=== PATIENT | male | born 1975 | race Caucasian/White ===

== ENCOUNTER 2023-12-11 10:47 | Outpatient (AMB) | payer OTHER, SELFPAY ==
[2023-12-11 10:47] VITALS: BP 104/80; PULSE 82; O2SAT 99; BMI 28.5
--- NOTE | 2023-12-11 10:47 | HO.NEPHOV_ITS ---
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 Currently on desmopressin. Overall is doing well he is tolerating medication well the urinary frequency has decreased. PFSH Family History Father Kidney disease Social History (Updated 12/11/23 @ 10:50 by Jerrica Arriola) Alcohol intake: current Comment: occ Patient Tobacco Use Status: Former Tobacco user Vital Signs 12/11/23 10:47 Height 5 ft 5 in Weight 171 lb BMI 28.5 BP 104/80 Blood Pressure Location Lt brachial Position Sitting Pulse 82 Pulse Source Pulse Oximeter Pulse Oximetry (%) 99 Oxygen Delivery Method Room Air Physical Exam Vital Signs: Last Vital Signs Pulse 82 12/11/23 10:47 BP 104/80 12/11/23 10:47 Pulse Ox 99 12/11/23 10:47 Oxygen Delivery Method Room Air 12/11/23 10:47 BMI result Body Mass Index 28.5 Const General: comfortable Nutritional Appearance: well nourished Orientation/consciousness: patient oriented x3 HEENT Head: No normal to inspection Mouth: moist mucous membranes Neck Neck: Yes supple and Yes no JVD Resp Auscultation: clear to auscultation bilaterally, no rales and rub present Cardio Jugular venous distension: no JVD Palpation: no palpable S3 and no palpable S4 Heart sounds: no rubs GI Palpation (GI): Soft to palpation and nontender Percussion: No Fluid wave present General: Yes no CVA tenderness Back/Spine/Pelvis Back: no CVA tenderness Skin General skin exam: no rashes or lesions noted Neuro General: patient oriented x3 Extrem General: Yes no pedal edema and No clubbing Assessment & Plan Assessment & Plan (1) Diabetes insipidus: Code(s): E23.2 - Diabetes insipidus Plan: Renal function stable Continue DDAVP at the prescribed dose. Encouraged him to her blood work done at least once a month to monitor serum sodium. As per the histiocytosis he follows with Dr. Godinez in [facility]. Currently blood pressure acceptable. All his questions were answered no changes were made. Orders: Orders Comprehensive Met. Panel 12/11/23 E23.2 - Diabetes insipidus Coding Level of Care Code Est Pt Level 4 (73695) Diagnoses Diabetes insipidus E23.2 Results Reviewed Nephrology Results: No Data to Display
== END 2023-12-11 11:09 | disposition home or self-care (01) ==
PROVIDERS: PCP Student in an Organized Health Care Education/Training Program; Visit Provider Internal Medicine Hypertension Specialist
DX: E23.2 Diabetes insipidus (principal)
CPT/HCPCS: 99214

== ENCOUNTER → 2023-12-11 10:47 | Outpatient (BNVA) | payer OTHER, SELFPAY | PROVIDERS: PCP Student in an Organized Health Care Education/Training Program; Visit Provider Internal Medicine Hypertension Specialist | DX: E23.2 Diabetes insipidus (principal) | CPT/HCPCS: 99212 ==

== ENCOUNTER 2024-07-01 08:47 | Outpatient (AMB) | payer OTHER, SELFPAY ==
[2024-07-01 08:51] VITALS: BP 100/64; PULSE 73; O2SAT 97; BMI 28.1
--- NOTE | 2024-07-01 08:51 | HO.NEPHOV ---
Vital Signs 07/01/24 08:51 Height 5 ft 5 in Weight 169 lb BMI 28.1 BP 100/64 Blood Pressure Location Lt brachial Position Sitting Pulse 73 Pulse Source Pulse Oximeter Pulse Oximetry (%) 97 Oxygen Delivery Method Room Air Intake Visit Reasons: 6 Month F/U/ Conf Retort Loader Required: No Accompanied by: Self / Same As Patient Allergies No Known Allergies Allergy (Verified 07/01/24 08:54) Medication List - Last Reconciled 07/01/24 by Caridad Spears, CONRADO, [employer] cholecalciferol (vitamin D3) 50 mcg PO DAILY cyanocobalamin (vitamin B-12) 1,000 mcg PO DAILY desmopressin 0.1 mg PO TID hydroxyurea 500 mg PO DAILY rosuvastatin 20 mg PO BEDTIME sertraline 50 mg PO DAILY testosterone transdermal HPI Comments Details: 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 Currently on desmopressin. Overall is doing well he is tolerating medication well. Denies urinary frequency. Denies excessive thirst reports new onset of extreme fatigue around 2pm every day reports tired to the point where he needs to sleep for 1-2 hours this has been ongoing for a few weeks now does not note any recent changes to explain this- no changes in medications, diet, lifestyle, work, etc. no shortness of breath or chest pain no swelling in his legs no headaches no dizziness, denies dizziness upon standing no swelling in his legs no changes with bowels/bladder, no new abdominal pain reports other than this he is feeling well continues to see Dr Jimenez at [facility], scans every three months for histiocytosis. [facility] Family History Father Kidney disease Social History Alcohol intake: current Comment: occ Patient Tobacco Use Status: Former Tobacco user Review of Systems Const Details: Denies anorexia, Reports fatigue (at 2pm each day for last few weeks), Denies fever(s) and Denies weakness Eyes Denies blurry vision ENT Denies Normal hearing present and Denies dizziness Card Denies no additional complaints, Denies chest pain, Denies leg edema, Denies lightheadedness and Denies dyspnea Resp Reports no additional complaints, Denies cough and Denies dyspnea GI Reports abdominal pain and Denies diarrhea Denies hematuria, Denies oliguria, Denies difficulty urinating, Denies dysuria, Denies flank pain, Denies nocturia, Denies urinary frequency and Denies urinary urgency Musc Denies myalgias, Denies arthralgias and Denies tingling Skin/Breast Denies rash Neuro Denies Normal hearing present, Denies dizziness, Denies focal weakness, Denies tingling, Denies tremor(s) and Denies weakness Endo Reports fatigue (at 2pm each day for last few weeks) Cresencio/Lymph Reports lymphadenopathy Physical Exam Vital Signs: Last Vital Signs Pulse 73 07/01/24 08:51 BP 100/64 07/01/24 08:51 Pulse Ox 97 07/01/24 08:51 Oxygen Delivery Method Room Air 07/01/24 08:51 BMI result Body Mass Index 28.1 Const Other: General: No acute distress, well-appearing. Neck: No lymphadenopathy, no thyromegaly. No JVD. Resp: Clear to auscultation bilaterally. Cardio: Regular rate, regular rhythm; Heart sounds: S1 normal heart sound present and S2 normal heart sound present. No JVD. No peripheral edema. GI: soft, nontender, no guarding. : No CVA tenderness. Skin: no rashes or lesions noted Neuro: Alert, oriented to person, place, time. Moves all extremities spontaneously. No tremor. No asterixis. Neuro Cranial nerves: No Normal hearing present Results Reviewed Nephrology Results: No Data to Display Assessment & Plan Assessment & Plan (1) Diabetes insipidus: Code(s): E23.2 - Diabetes insipidus Category: Medical Plan: New onset fatigue, will get BMP to check sodium level, urine and serum osmolality to ensure DI is controlled and not contributing to afternoon fatigue advised pt to discuss his new severe afternoon fatigue with Dr Jimenez at [facility], as this may be related to histiocytosis. Renal function stable from February labs, due for updated electrolytes and renal function check, pt to get today. Continue DDAVP at the prescribed dose. Encouraged him to get blood work done at least once a month to monitor serum sodium. Currently blood pressure acceptable, on low side but stable so do not suspect this is contributing to fatigue. All his questions were answered no changes were made. Discussed with Dr Parks. Orders: Orders Basic Metabolic Panel Today E23.2 - Diabetes insipidus, N18.30 - Chronic kidney disease, stage 3 unspecified Osmolality, Serum Today E23.2 - Diabetes insipidus Osmolality Urine Today E23.2 - Diabetes insipidus Medications: Refilled desmopressin 0.1 mg PO TID 270 tabs 2RF Coding Level of Care Code Est Pt Level 4 (05882) Diagnoses Diabetes insipidus E23.2
== END 2024-07-01 09:29 | disposition home or self-care (01) ==
PROVIDERS: PCP Student in an Organized Health Care Education/Training Program; Visit Provider Internal Medicine Hypertension Specialist
DX: E23.2 Diabetes insipidus (principal)
CPT/HCPCS: 99214

== ENCOUNTER → 2024-07-01 08:47 | Outpatient (BNVA) | payer OTHER, SELFPAY | PROVIDERS: PCP Student in an Organized Health Care Education/Training Program; Visit Provider Internal Medicine Hypertension Specialist ==

== ENCOUNTER 2024-07-01 09:16 | Outpatient (REF) | payer OTHER, SELFPAY ==
[2024-07-01 15:46] LABS: Osmolality, Serum 293 mosm/kg (281-305)
[2024-07-01 16:15] LABS: Alanine Aminotransferase 38 U/L (0-40); Albumin Level 4.4 g/dL (3.5-5.0); Alkaline Phosphatase 78 U/L (39-117); Anion Gap 12 (12-20); Aspartate Amino Transferase 21 U/L (5-37); Bilirubin Total 0.5 mg/dL (0.0-1.0); Blood Urea Nitrogen 13 mg/dL (9-16); Calcium 9.5 mg/dL (8.4-10.2); Carbon Dioxide 26 mmol/L (22-29); Chloride 107 mmol/L (96-108); Estimated Glomerular Filt Rate > 60; Glucose Random 101 mg/dL (60-115); Potassium 4.3 mmol/L (3.3-5.1); Sodium 141 mmol/L (135-145); Total Protein 7.1 g/dL (6.5-8.0)
[2024-07-01 16:38] LABS: Osmolality Urine 941 mosm/kg (373-1093)
== END 2024-07-01 09:17 | disposition home or self-care (01) ==
LOC: HO.HKASLDS 09:16
PROVIDERS: Internal Medicine Hypertension Specialist; Visit Provider Nurse Practitioner Family
DX: E23.2 Diabetes insipidus (principal)
CPT/HCPCS: 36415; 80053; 83930; 83935; 99212

== ENCOUNTER 2024-12-23 08:36 | Outpatient (REF) | payer MEDICAID, SELFPAY ==
[2024-12-23 18:44] LABS: Anion Gap 12 (12-20); Blood Urea Nitrogen 17 mg/dL (9-16); Calcium 9.1 mg/dL (8.4-10.2); Carbon Dioxide 22 mmol/L (22-29); Chloride 111 mmol/L (96-108); Estimated Glomerular Filt Rate > 60; Glucose Random 91 mg/dL (60-115); Potassium 4.1 mmol/L (3.3-5.1); Sodium 141 mmol/L (135-145)
[2024-12-23 19:02] LABS: Osmolality Urine 887 mosm/kg (373-1093)
== END 2024-12-23 08:37 | disposition home or self-care (01) ==
LOC: HO.HKASLDS 08:36
PROVIDERS: PCP Student in an Organized Health Care Education/Training Program; Visit Provider Internal Medicine Hypertension Specialist
DX: E23.2 Diabetes insipidus (principal)
CPT/HCPCS: 36415; 80048; 83935; 84300; 99212

== ENCOUNTER 2024-12-23 08:36 | Outpatient (AMB) | payer OTHER, SELFPAY ==
[2024-12-23 08:38] VITALS: BP 108/72; PULSE 76; O2SAT 99; BMI 27.6
--- NOTE | 2024-12-23 08:38 | HO.NEPHOV_ITS ---
Vital Signs 12/23/24 08:38 Height 5 ft 5 in Weight 166 lb BMI 27.6 BP 108/72 Blood Pressure Location Lt brachial Position Sitting Pulse 76 Pulse Source Pulse Oximeter Pulse Oximetry (%) 99 Oxygen Delivery Method Room Air Intake Visit Reasons: Diabetes insipidus/ Conf Television Receiver Analyzer Required: No Accompanied by: Self / Same As Patient Allergies No Known Allergies Allergy (Verified 12/23/24 08:39) Medication List - Last Reconciled 12/23/24 by Riccardo Parks MD cholecalciferol (vitamin D3) 50 mcg PO DAILY cyanocobalamin (vitamin B-12) 1,000 mcg PO DAILY desmopressin 0.1 mg PO TID hydroxyurea 500 mg PO DAILY rosuvastatin 20 mg PO BEDTIME sertraline 50 mg PO DAILY testosterone transdermal HPI Comments Details: 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 Currently on desmopressin. Overall is doing well he is tolerating medication well. Denies urinary frequency. Denies excessive thirst reports tired to the point where he needs to sleep for 1-2 hours no shortness of breath or chest pain no swelling in his legs no headaches no dizziness, denies dizziness upon standing no swelling in his legs no changes with bowels/bladder, no new abdominal pain continues to see Dr Jimenez at [facility] scans every three months for histiocytosis. Currently on Hydroxyurea PFSH Family History Father Kidney disease Social History Alcohol intake: current Comment: [facility] Patient Tobacco Use Status: Former Tobacco user Physical Exam Vital Signs: Last Vital Signs Pulse 76 12/23/24 08:38 BP 108/72 12/23/24 08:38 Pulse Ox 99 12/23/24 08:38 Oxygen Delivery Method Room Air 12/23/24 08:38 BMI result Body Mass Index 27.6 Const Other: General: No acute distress, well-appearing. Neck: No lymphadenopathy, no thyromegaly. No JVD. Resp: Clear to auscultation bilaterally. Cardio: Regular rate, regular rhythm; Heart sounds: S1 normal heart sound present and S2 normal heart sound present. No JVD. No peripheral edema. GI: soft, nontender, no guarding. : No CVA tenderness. Skin: no rashes or lesions noted Neuro: Alert, oriented to person, place, time. Moves all extremities spontaneously. No tremor. No asterixis. Results Reviewed Nephrology Results: Sodium 141 mmol/L (135-145) 07/01/24 Potassium 4.3 mmol/L (3.3-5.1) 07/01/24 Chloride 107 mmol/L (96-108) 07/01/24 Carbon Dioxide 26 mmol/L (22-29) 07/01/24 BUN 13 mg/dL (9-16) 07/01/24 Creatinine 1.10 mg/dL (0.5-1.4) 07/01/24 Calcium 9.5 mg/dL (8.4-10.2) 07/01/24 Assessment & Plan Assessment & Plan (1) Diabetes insipidus: Code(s): E23.2 - Diabetes insipidus Category: Medical Plan: Renal function stable Continue DDAVP at the prescribed dose. Encouraged him to her blood work done at least once a month to monitor serum sodium. As per the histiocytosis he follows with Dr. Godinez in [facility]. Currently blood pressure acceptable. All his questions were answered no changes were made. Orders: Orders Basic Metabolic Panel Today E23.2 - Diabetes insipidus Sodium Urine Random Today E23.2 - Diabetes insipidus Osmolality Urine Today E23.2 - Diabetes insipidus Coding Level of Care Code Est Pt Level 4 (67546) Diagnoses Diabetes insipidus E23.2
--- OUTSIDE RECORDS SUMMARY | 2024-12-23 09:25 | XMS_ITS | Clinical Summary ---
Author Organization 175 [facility] Address [address] [place] [address] Phone Care Team Providers Care Dairy And Food Laboratory Assistant Name Role Phone Elma Louise MD Primary Care Provider [phone] Allergies Active Allergy Reactions Criticality Noted Date Comments Other 02/01/2017 Medications sertraline (ZOLOFT) 50 mg tablet Take 1 tablet (50 mg total) by mouth 1 (one) time each day. 4 Active hydroxyurea (HYDREA) 500 mg capsule Take 1 capsule (500 mg total) by mouth 2 (two) times a day Active desmopressin (DDAVP) 0.1 mg tablet Take 1 tablet (0.1 mg total) by mouth 2 (two) times a day. Active testosterone 20.25 mg/1.25 gram (1.62 %) gel in metered-dose pump Place on the skin. Active phenyleph/ampoule examiner al oil/petrolat (PREPARATION H RECT) Insert 1 mg PE into the rectum 3 (three) times a day. 3 Active triamcinolone (KENALOG) 0.1 % cream Apply topically 2 (two) times a day. x2 weeks 2 Active rosuvastatin (CRESTOR) 20 mg tablet TAKE 1 TABLET BY MOUTH EVERYDAY AT BEDTIME 90 tablet 1 5 Active cholecalciferol (VITAMIN D-3) 50 mcg (2,000 unit) tablet TAKE 1 TABLET BY MOUTH EVERY DAY 90 tablet 1 5 Active Active Problems Problem Noted Date Diagnosed Date Diabetes insipidus 10/18/2023 Elevated liver enzymes 04/17/2023 Mixed hyperlipidemia 04/17/2023 Vitamin D deficiency 04/17/2023 BPH (benign prostatic hyperplasia) 04/06/2022 Overview (08/31/2024): Followed by [facility] Chronic urticaria 01/04/2021 COVID-19 12/19/2020 Compression fracture of thoracic vertebra 2017 Overview (08/31/2024): Pathologic; ortho at [facility]; f/u prn 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 Overview (08/31/2024): Multiple bony lesions of pelvis and sacrum; [facility], also Dr Herbert gAustin 11/21/2016 Dysplastic nevus 04/14/2014 Overview (08/31/2024): Dysplastic nevus 04/19 back & left flank (mild atypia) Encounters Date Type Department Care Team Description 10/23/2024 8:30 AM EST Office Visit Internal Medicine - [address] [place] [address] Elma Louise MD Encounter for annual physical exam (Primary Dx); Other fatigue; Mixed hyperlipidemia; Langerhan's cell histiocytosis (CMS/HCC); Elevated liver enzymes; Vitamin D deficiency; Diabetes insipidus (CMS/HCC); Benign prostatic hyperplasia, unspecified whether lower urinary tract symptoms present; Anxiety; Other abnormal glucose from Last 3 Months Immunizations Name Administration Dates Next Due DTP 06/07/2001 Influenza trivalent, 0.5mL, preservative free (Fluarix; FluLaval; Fluzone) ages 6mo and older (Afluria) 3 years and older 07/05/2011,06/29/2009 Pfizer SARS-CoV-2 COVID-19, mRNA, LNP-S, preservative free 09/21/2021 Tdap Tetanus diptheria acell ular pertussis (Boostrix; Adacel) 7yo and older 12/07/2021,07/05/2011 Surgical History Surgery Date Site/Laterality Comments OTHER SURGICAL HISTORY 1990 PROCEDURE: ---- OTHER ----; COMMENT: rhinoplasty Medical History Medical History Date Comments BPH (benign prostatic hyperplasia) 04/06/2022 DX:BPH (benign prostatic hyperplasia); COMMENT: Followed by [facility] Elevated liver enzymes 04/17/2023 DX:Elevat ed liver enzymes Vitamin D deficiency 04/17/2023 DX:Vitamin D deficiency Diabetes insipidus (CMS/HCC) 10/18/2023 DX: Diabetes insipidus (HCC) Langerhan's cell histiocytos is (CMS/HCC) 11/19/2017 DX:Langerhan's cell histiocy tosis (HCC); COMMENT: Multiple bony lesions of pelvis and sacrum; [facility], also Dr Godinez Family History Medical History Relation Name Comments Alzheimer's disease Father Stomach cancer Maternal Grandfather Breast cancer Mother Coronary artery disease Neg Hx Diabetes Neg Hx Hypertension Neg Hx Other cancer Neg Hx Relation Name Status Comments Brother Alive 1,healthy Father Alive both healthy Maternal Grandfather Maternal Grandmother Mother Alive Paternal Grandfather Paternal Grandmother Sister Alive 1,healthy Social History Tobacco Use Types Packs/Day Years Used Date Smoking Tobacco: Former Cigarettes Q uit: 12/29/2006 Smokeless Tobacco: Never Tobacco Cessation:Counseling Given: Not Answered Alcohol Use Standard Drinks/Week Comments Yes 0 (1 standard drink = 0.6 oz pur e alcohol) Sex and Gender Information Value Date Recorded Sex Assigned at Not on file Legal Sex Male 3:54 AM EST Gender Identity Not on file Sexual Orientation Not on file Obstetrics History Last Filed Vital Signs Vital Sign Reading Time Taken Comments Blood Pressure 110/75 10/23/2024 8:50 AM EST Pulse 80 10/23/2024 8:50 AM EST Temperature 36.1 ??C (97 ??F) 10/23/2024 8:50 AM EST Respiratory Rate - - Oxygen Saturation 100% 10/23/2024 8:50 AM EST Inhaled Oxygen Concentration - - Weight 74.8 kg (165 lb) 10/23/2024 8:50 AM EST Height 165.1 cm (5' 5 ) 10/23/2024 8:50 AM EST Body Mass Index 27.46 10/23/2024 8:50 AM EST Plan of Treatment Upcoming Encounters Date Type Department Care Team (Late st Contact Info) Description 03/05/2025 10:30 AM EDT Appointment [facility] Endoscopy [address] [place] [id number] Janina Basurto MD [address] [address] 10/29/2025 8:30 AM EST Office Visit Internal Medicine - [place] [address] [phone] Elma Louise MD [address] [address] Health Maintenance Due Date Last Done Comments Hepatitis B Vaccines (1 of 3 - 19+ 3-dose series) 1993 Pneumococcal Vaccine: 50+ Years (1 of 2 - PCV) 1993 Pneumococcal Vaccine: Pediatrics (0 to 5 Years) and At-Risk Patients (6 to 64 Years) (1 of 2 - PCV) 1993 Zoster Vaccines (1 of 2) 1993 Colorectal Cancer Screening: Colonoscopy 09/09/2022 HIV Screening 09/09/2022 COVID-19 Vaccine (4 - 2023-2 5 season) 2024 09/21/2021, 01/30/2021, 01/09/2021 Influenza Vaccine (#1) 2024 1, 06/29/2009 Depression Screening 08/06/2025 08/06/2024 Social Influencers of Health Screening 10/23/2025 10/23/2024 Cholesterol Screening (Lipid Panel) 10/23/2029 10/23/2024, 04/17/2024, 04/17/2024 DTaP,Tdap,and Td Vaccines (4 - Td or Tdap) 12/08/2031 12/07/2021, 07/05/2011, 06/07/2001 Hepatitis C Screening Completed 10/18/2023 HIB Vaccines Aged Out No longer eligi ble based on patient's age to complete this topic HPV Vaccines Aged Out No longer eligi ble based on patient's age to complete this topic Hepatitis A Vaccines Aged Out No long er eligible based on patient's age to complete this topic IPV Vaccines Aged Out No longer eligi ble based on patient's age to complete this topic MMR Vaccines Aged Out No longer eligi ble based on patient's age to complete this topic Meningococcal ACWY Vaccine Aged Out N o longer eligible based on patient's age to complete this topic Meningococcal B Vacine Aged Out No lo nger eligible based on patient's age to complete this topic RSV Immunization Patients Under 20 months Aged Out No longer eligible b ased on patient's age to complete this topic Varicella Vaccines Aged Out No longer eligible based on patient's age to complete this topic Procedures Procedure Name Priority Date/Time Associated Diagnosis Comments CBC WITH AUTO DIFFERENTIAL Routine 10/23/2024 9:28 AM EST Other fatigue MAGNESIUM Routine 10/23/2024 9:28 AM EST Encounter for annual physical exam HEMOGLOBIN A1C Routine 10/23/2024 9:28 AM EST Encounter for annual physical exam Other abnormal glucose VITAMIN D 25 HYDROXY Routine 10/23/2024 9:28 AM EST Encounter for annual physical exam Vitamin D deficiency THYROID STIMULATING HORMONE WITH REFLEX TO FREE T4 AND FREE T3 Routine 10/23/2024 9:28 AM EST Other fatigue VITAMIN B12 Routine 10/23/2024 9:28 AM EST Other fatigue COMPREHENSIVE METABOLIC PANEL Routine 10/23/2024 9:28 AM EST Encounter for annual physical exam CBC AND DIFFERENTIAL Routine 10/23/2024 9:28 AM EST Other fatigue LIPID PANEL WITH REFLEX TO DIRECT LDL Routine 10/23/2024 9:28 AM EST Mixed hyperlipidemia HM DEPRESSION SCREENING Routine 08/06/2024 HEPATITIS C SCREENING Routine 10/18/2023 from Last 3 Months or Most Recently Relevant to Health Maintenance Results * Thyroid stimulating hormone with reflex to free t4 and free t3 (10/23/2024 9:28 AM EST) TSH 1.22 0.40 - 4.00 mcIU/mL LAB CHEMISTRY METHOD 10/23/2024 5:18 PM EST [facility] Blood Venous blood specimen / Unknown Venipuncture / Unknown 10/23/2024 9:28 AM EST 10/23/2024 9:28 AM EST Elma Louise MD LAB BLOOD ORDERABLES Final Resul t [facility] [address] [place] [address], [place] [phone] * Lipid panel with reflex to direct LDL (10/23/2024 9:28 AM EST) [facility] Cholesterol 144 0 - 200 mg/dL LAB CHEMISTRY METHOD 10/23/2024 6:12 PM [facility] Triglycerides 139 0 - 150 mg/dL LAB CHEMISTRY METHOD 10/23/2024 6:12 PM [facility] HDL 40 >=40 mg/dL LAB CHEMISTRY METHOD 10/23/2024 6:12 PM EST [facility] LDL Calculated 76 0 - 100 mg/dL LAB CHEMISTRY METHOD 10/23/2024 6:12 PM [facility] VLDL Cholesterol Nakul 27.8 mg/dL LAB CHEMISTRY METHOD 10/23/2024 6:12 PM [facility] Non HDL Chol. (LDL+VLDL) 104 <145 mg/dL LAB CHEMISTRY METHOD 10/23/2024 6:12 PM [facility] Chol/HDL Ratio 3.6 0.0 - 4.4 LAB CHEMISTRY METHOD 10/23/2024 6:12 PM [facility] Blood Venous blood specimen / Unknown Venipuncture / Unknown 10/23/2024 9:28 AM EST 10/23/2024 9:28 AM EST Elma Louise MD LAB BLOOD ORDERABLES Final Resul t [facility] [address] [place] [address], * (ABNORMAL) CBC auto differential (10/23/2024 9:28 AM EST) WBC 5.0 4.8 - 10.8 K/mcL LAB HEMETOLOGY METHOD 10/23/2024 3:18 PM EST [facility] RBC 4.50 4.50 - 5.50 M/mcL LAB HEMETOLOGY METHOD 10/23/2024 3:18 PM EST [facility] Hemoglobin 14.8 13.5 - 17.5 g/dL LAB HEMETOLOGY METHOD 10/23/2024 3:18 PM [facility] Hematocrit 44.5 42.0 - 54.0 % LAB HEMETOLOGY METHOD 10/23/2024 3:18 PM EST [facility] MCV 99.1(H) 79.0 - 98.0 FL LAB HEMETOLOGY METHOD 10/23/2024 3:18 PM EST [facility] MCH 33.0(H) 27.0 - 32.0 pcg LAB HEMETOLOGY METHOD 10/23/2024 3:18 PM [facility] MCHC 33.3 32.0 - 37.0 g/dL LAB HEMETOLOGY METHOD 10/23/2024 3:18 PM EST [facility] RDW 12.8 11.0 - 15.0 % LAB HEMETOLOGY METHOD 10/23/2024 3:18 PM EST [facility] Platelets 190 130 - 400 K/mcL LAB HEMETOLOGY METHOD 10/23/2024 3:18 PM [facility] MPV 10.1 7.0 - 11.0 FL LAB HEMETOLOGY METHOD 10/23/2024 3:18 PM EST [facility] NRBC 0.0 <1.0 % LAB HEMETOLOGY METHOD 10/23/2024 3:18 PM [facility] NRBC Absolute 0.00 <0.10 K/mcL LAB HEMETOLOGY METHOD 10/23/2024 3:18 PM [facility] Neutrophils Relative 63.2 % LAB HEMETOLOGY METHOD 10/23/2024 3:18 PM [facility] Lymphocytes Relative 26.8 % LAB HEMETOLOGY METHOD 10/23/2024 3:18 PM [facility] Monocytes Relative 7.4 % LAB HEMETOLOGY METHOD 10/23/2024 3:18 PM [facility] Eosinophils Relative 1.4 % LAB HEMETOLOGY METHOD 10/23/2024 3:18 PM [facility] Basophils Relative 0.8 % LAB HEMETOLOGY METHOD 10/23/2024 3:18 PM [facility] Immature Granulocytes Relative 0.4 % LAB HEMETOLOGY METHOD 10/23/2024 3:18 PM [facility] Neutrophils Absolute 3.18 1.50 - 7.00 K/mcL LAB HEMETOLOGY METHOD 10/23/2024 3:18 PM [facility] Lymphocytes Absolute 1.35 1.00 - 5.00 K/mcL LAB HEMETOLOGY METHOD 10/23/2024 3:18 PM [facility] Monocytes Absolute 0.37 0.20 - 1.00 K/mcL LAB HEMETOLOGY METHOD 10/23/2024 3:18 PM [facility] Eosinophils Absolute 0.07 0.00 - 0.50 K/mcL LAB HEMETOLOGY METHOD 10/23/2024 3:18 PM [facility] Basophils Absolute 0.04 0.00 - 0.20 K/mcL LAB HEMETOLOGY METHOD 10/23/2024 3:18 PM [facility] Immature Granulocytes Absolute 0.02 0.00 - 0.03 K/mcL LAB HEMETOLOGY METHOD 10/23/2024 3:18 PM EST [facility] Blood Venous blood specimen / Unknown Venipuncture / Unknown 10/23/2024 9:28 AM EST 10/23/2024 9:28 AM EST Elma Louise MD LAB BLOOD ORDERABLES Final Resul t Performing Organization Address City/[facility] de Phone Number [facility] [address] [place] [address], [place] [phone] * Vitamin D 25 hydroxy (10/23/2024 9:28 AM EST) Vit D, 25-Hydroxy 62.7 30.0 - 80.0 ng/mL LAB CHEMISTRY METHOD 10/23/2024 5:18 PM EST [facility] Blood Venous blood specimen / Unknown Venipuncture / Unknown 10/23/2024 9:28 AM EST 10/23/2024 9:28 AM EST Elma Louise MD LAB BLOOD ORDERABLES Final Resul t Performing Organization Address [facility] de Phone Number [facility] [address] [place] [address], [place] [phone] * Magnesium (10/23/2024 9:28 AM EST) Magnesium 2.2 1.9 - 2.6 mg/dL LAB CHEMISTRY METHOD 10/23/2024 5:17 PM EST [facility] Blood Venous blood specimen / Unknown Venipuncture / Unknown 10/23/2024 9:28 AM EST 10/23/2024 9:28 AM EST Elma Louise MD LAB BLOOD ORDERABLES Final Resul t Performing Organization Address City/[facility] Co de Phone Number [facility] [address] [place] [address], [place] [phone] * Hemoglobin A1c (10/23/2024 9:28 AM EST) [facility] Hemoglobin A1C 5.2 <6.5 % LAB CHEMISTRY METHOD 10/23/2024 10:07 PM EST [facility] Mean Bld Glu Estim. 103 mg/dL LAB CHEMISTRY METHOD 10/23/2024 10:07 PM EST [facility] Blood Venous blood specimen / Unknown Venipuncture / Unknown 10/23/2024 9:28 AM EST 10/23/2024 9:28 AM EST Elma Louise MD LAB BLOOD ORDERABLES Final Resul t Performing Organization Address [facility]/ZIP Co de Phone Number [facility] [address] [place] [address], * (ABNORMAL) Vitamin B12 (10/23/2024 9:28 AM EST) [facility] Vitamin B-12 >2,000(H) 250 - 900 pcg/mL LAB CHEMISTRY METHOD 10/23/2024 6:12 PM EST [facility] Blood Venous blood specimen / Unknown Venipuncture / Unknown 10/23/2024 9:28 AM EST 10/23/2024 9:28 AM EST Elma Louise MD LAB BLOOD ORDERABLES Final Resul t [facility] [address] [place] [address], [place] [phone] * (ABNORMAL) Comprehensive metabolic panel (10/23/2024 9:28 AM EST) [facility] Sodium 139 133 - 145 mmol/L LAB CHEMISTRY METHOD 10/23/2024 7:46 PM EST [facility] Potassium 4.5 3.5 - 5.5 mmol/L LAB CHEMISTRY METHOD 10/23/2024 7:46 PM [facility] Chloride 108 96 - 110 mmol/L LAB CHEMISTRY METHOD 10/23/2024 7:46 PM [facility] CO2 25 21 - 32 mmol/L LAB CHEMISTRY METHOD 10/23/2024 7:46 PM [facility] Anion Gap 6 3 - 11 LAB CHEMISTRY METHOD 10/23/2024 7:46 PM [facility] Glucose 96 70 - 100 mg/dL LAB CHEMISTRY METHOD 10/23/2024 7:46 PM [facility] BUN 12 5 - 25 mg/dL LAB CHEMISTRY METHOD 10/23/2024 7:46 PM [facility] Creatinine 1.18 0.70 - 1.30 mg/dL LAB CHEMISTRY METHOD 10/23/2024 7:46 PM [facility] eGFR 75 >=60 mL/min/1. 73m2 LAB CHEMISTRY METHOD 10/23/2024 7:46 PM [facility] Comment:Calculation based on the??Chronic Kidney Disease Epidemiology Collaboration (CKD-EPI) equation refit??without adjustment for race. BUN/Creatinine Ratio 10.2 LAB CHEMISTRY METHOD 10/23/2024 7:46 PM [facility] Calcium 8.6 8.5 - 10.5 mg/dL LAB CHEMISTRY METHOD 10/23/2024 7:46 PM [facility] AST (SGOT) 34 10 - 42 unit/L LAB CHEMISTRY METHOD 10/23/2024 7:46 PM [facility] ALT (SGPT) 68(H) 10 - 60 unit/L LAB CHEMISTRY METHOD 10/23/2024 7:46 PM [facility] Alkaline Phosphatase 108 42 - 121 unit/L LAB CHEMISTRY METHOD 10/23/2024 7:46 PM [facility] Total Protein 7.0 6.0 - 8.0 g/dL LAB CHEMISTRY METHOD 10/23/2024 7:46 PM EST [facility] Albumin 3.9 3.2 - 5.0 g/dL LAB CHEMISTRY METHOD 10/23/2024 7:46 PM EST [facility] Total Bilirubin 0.4 0.0 - 1.4 mg/dL LAB CHEMISTRY METHOD 10/23/2024 7:46 PM EST [facility] Blood Venous blood specimen / Unknown Venipuncture / Unknown 10/23/2024 9:28 AM EST 10/23/2024 9:28 AM EST Elma Louise MD LAB BLOOD ORDERABLES Final Resul t [facility] [address] [place] [address], * Depression Screening (08/06/2024) Depression Screening abstracted Historical Provider HEALTH MAINTENANCE Final Result * Hepatitis C Screening (10/18/2023) Hepatitis C Screening abstracted Historical Provider HEALTH MAINTENANCE Final Result from Last 3 Months or Most Recently Relevant to Health Maintenance Insurance [facility] Care Teams Dairy And Food Laboratory Assistant Relationship Specialty Start Date End Date Elma Louise MD [address] [place] [address] PCP - General 11/05/22
--- OUTSIDE RECORDS SUMMARY | 2024-12-23 09:25 | XMS_ITS | Clinical Summary ---
Author Organization [facility] Address [address] [facility] [address] [place] [address] Phone Care Team Providers Care Senior Network Architect Name Role Phone GabrielChris kang Primary Care Provider [phone] Allergies No known active allergies Medications sertraline (ZOLOFT) 50 MG tablet Take 1 tablet by mouth 1 (one) time each day 03/29/2022 Active hydroxyurea (HYDREA) 500 MG capsule 2 (two) times a day 10/16/2022 Active desmopressin (DDAVP) 0.1 MG tablet Take 1 tablet (100 mcg total) by mouth in the morning and 1 tablet (100 mcg total) at noon and 1 tablet (100 mcg total) in the evening. 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 Overview (05/01/2022): Overview: Multiple bony lesions of pelvis and sacrum Multiple bony lesions of pelvis and sacrum; [facility], also Dr Herbert Agustin 11/21/2016 Neoplasm of soft tissue 04/14/2014 Overview (05/01/2022): Overview: Dysplastic nevus 7/14 back & left flank (mild atypia) Dysplastic nevus 7/14 back & left flank (mild atypia) Immunizations Name Administration Dates Next Due DTP 06/07/2001 Influenza, Unspecified 07/05/2011,06/29/2009 Pfizer SARS-COV-2 09/21/2021 Tdap 12/07/2021,07/05/2011 Social History Tobacco Use Types Packs/Day Years Used Date Smoking Tobacco: Former Cigarettes Smokeless Tobacco: Never Tobacco Cessation:Counseling Given: Not Answered Alcohol Use Standard Drinks/Week Comments Never 0 (1 standard drink = 0.6 oz pur e alcohol) Sex and Gender Information Value Date Recorded Sex Assigned at Not on file Legal Sex Male 8:36 AM EDT Gender Identity Not on file Sexual Orientation Not on file Last Filed Vital Signs Vital Sign Reading Time Taken Comments Blood Pressure 122/66 05/07/2023 1:04 PM EDT Pulse 77 05/07/2023 1:04 PM EDT Temperature - - Respiratory Rate - - Oxygen Saturation 99% 05/07/2023 1:04 PM EDT Inhaled Oxygen Concentration - - Weight 74.3 kg (163 lb 12.8 oz) 07/11/2022 2:08 PM EDT Height - - Body Mass Index - - Plan of Treatment Health Maintenance Due Date Last Done Comments Pneumococcal Vaccine: Pediat rics (0 to 5 Years) and At-Risk Patients (6 to 64 Years) (1 of 2 - PCV) 02/23/1980 Hepatitis B Vaccine (1 of 3 - 19+ 3-dose series) 1993 Colorectal Cancer Screening: Annual FOBT 2023 Colorectal Cancer Screening: Colonoscopy 2023 Colorectal Cancer Screening: Sigmoidoscopy 2023 Influenza Vaccine (#1) 2024 07/05/2011, 2008 Insurance [facility] Care Teams Senior Network Architect Relationship Specialty Start Date End Date Chris Shahid [address] [place] [id number] PCP - General Internal Medicine 04/17/22
== END 2024-12-23 08:49 | disposition home or self-care (01) ==
LOC: HO.HKAS 08:37
PROVIDERS: PCP Student in an Organized Health Care Education/Training Program; Visit Provider Internal Medicine Hypertension Specialist
DX: E23.2 Diabetes insipidus (principal)
CPT/HCPCS: 99214

== ENCOUNTER 2025-08-04 10:17 | Outpatient (AMB) | payer OTHER, SELFPAY ==
[2025-08-04 10:23] VITALS: BP 112/80; PULSE 69; O2SAT 99; BMI 28.8
--- NOTE | 2025-08-04 10:23 | HO.NEPHOV ---
Vital Signs 08/04/25 10:23 Height 5 ft 5 in Weight 173 lb BMI 28.8 BP 112/80 Blood Pressure Location Lt brachial Position Sitting Pulse 69 Pulse Source Pulse Oximeter Pulse Oximetry (%) 99 Oxygen Delivery Method Room Air Intake Visit Reasons: Diabetes insipidus confirmed Bus Person Dishwasher Required: No Accompanied by: Self / Same As Patient Allergies No Known Allergies Allergy (Verified 08/04/25 10:24) Medication List - Last Reconciled 08/04/25 by Riccardo Parks MD cholecalciferol (vitamin D3) 50 mcg PO DAILY cyanocobalamin (vitamin B-12) 1,000 mcg PO DAILY desmopressin 0.1 mg PO TID rosuvastatin 20 mg PO BEDTIME sertraline 50 mg PO DAILY testosterone 2 packets transdermal DAILY HPI Comments Details: 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 Currently on desmopressin. Overall is doing well he is tolerating medication well. Denies urinary frequency. Denies excessive thirst reports tired to the point where he needs to sleep for 1-2 hours no shortness of breath or chest pain no swelling in his legs no headaches no dizziness, denies dizziness upon standing no swelling in his legs no changes with bowels/bladder, no new abdominal pain continues to see Dr Jimenez at [facility], scans every three months for histiocytosis. 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 Recently seen in [place]. Underwent a PET scan which was unremarkable. He is off hydroxyurea. Recently has been noticing visual disturbances. - Reports halos around lights. - Last eye exam was five years ago. PFSH Family History Father Kidney disease Social History Alcohol intake: current Comment: [facility] Patient Tobacco Use Status: Former Tobacco user Physical Exam Vital Signs: Last Vital Signs Pulse 69 08/04/25 10:23 BP 112/80 08/04/25 10:23 Pulse Ox 99 08/04/25 10:23 Oxygen Delivery Method Room Air 08/04/25 10:23 BMI result Body Mass Index 28.8 Const Other: General: No acute distress, well-appearing. Neck: No lymphadenopathy, no thyromegaly. No JVD. Resp: Clear to auscultation bilaterally. Cardio: Regular rate, regular rhythm; Heart sounds: S1 normal heart sound present and S2 normal heart sound present. No JVD. No peripheral edema. GI: soft, nontender, no guarding. : No CVA tenderness. Skin: no rashes or lesions noted Neuro: Alert, oriented to person, place, time. Moves all extremities spontaneously. No tremor. No asterixis. 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 Currently on DDAVP. As for the histiocytosis he follows with Dr. Godinez in [facility]. Currently blood pressure acceptable. Mild bump in serum creatinine Increase him to increase p.o. fluid intake. Will recheck serum at [facility] BUN creatinine and osmolality in the next few weeks. Visual Disturbances - Eye examination recommended to assess visual disturbances. Orders: Orders UA and rflx microscopic 6 Months E23.2 - Diabetes insipidus Blood Urea Nitrogen 1 Week E23.2 - Diabetes insipidus Osmolality Urine 1 Week E23.2 - Diabetes insipidus UA and rflx microscopic 1 Week E23.2 - Diabetes insipidus Basic Metabolic Panel 3 Months E23.2 - Diabetes insipidus Osmolality Urine 6 Months E23.2 - Diabetes insipidus Creatinine 1 Week E23.2 - Diabetes insipidus Coding Level of Care Code Est Pt Level 4 (14573) Diagnoses Diabetes insipidus E23.2
--- OUTSIDE RECORDS SUMMARY | 2025-08-04 12:47 | XMS_ITS ---
Author Name [facility] Organization Unknown Care Team Organization Name Specialty Phone Email Start Date End Da te [facility] Ashli Mir Primary Care 03/15/2023 05/25/2024 [facility] Gaby Quigley Primary Care 08/14/2022
--- OUTSIDE RECORDS SUMMARY | 2025-08-04 12:47 | XMS_ITS | Clinical Summary ---
Author Organization [address] 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 Active testosterone 20.25 mg/1.25 gram (1.62 %) gel in metered-dose pump Place on the skin. Active phenyleph/minera l oil/petrolat (PREPARATION H RECT) Insert 1 mg PE into the rectum 3 (three) times a day. 04/17/20 23 Active triamcinolone (KENALOG) 0.1 % cream Apply topically 2 (two) times a day. x2 weeks 02/20/20 22 Active polyethylene glycol (Golytely) 236-22.74-6.74 -5.86 gram solution Take 4L by mouth once for one dose. May substitue any PEG. Starting at 6PM the night before your procedure drink 1 8oz glasses at your own pace until you complete half of the gallon. Finish 2nd half of the gallon 5 hours before your procedure. 4000 mL 02/20/20 25 Active tadalafiL (CIALIS) 10 mg tablet PLEASE SEE ATTACHED FOR DETAILED DIRECTIONS 04/02/20 24 Active rosuvastatin (CRESTOR) 20 mg tablet TAKE 1 TABLET BY MOUTH EVERYDAY AT BEDTIME 90 tablet 1 04/19/20 25 Active cholecalciferol (VITAMIN D-3) 50 mcg (2,000 unit) tablet TAKE 1 TABLET BY MOUTH EVERY DAY 90 tablet 1 04/26/20 25 Active testosterone 1.62 % (20.25 mg/1.25 gram) gel in packetIndication s:Low testosterone in male Apply 2 packets a day 60 packet 2 05/07/20 25 Active sertraline (ZOLOFT) 50 mg tabletIndication s:Anxiety disorder, unspecified TAKE 1 TABLET BY MOUTH EVERY DAY 90 tablet 1 07/21/20 25 Active sertraline (ZOLOFT) 50 mg tabletIndication s:Anxiety disorder, unspecified TAKE 1 TABLET BY MOUTH EVERY DAY 90 tablet 1 02/03/20 25 025 Discontinued Active Problems Problem Noted Date Diagnosed Date Diabetes insipidus ([facility] V24) 10/18/2023 Elevated liver enzymes 04/17/2023 Mixed hyperlipidemia 04/17/2023 Vitamin D deficiency 04/17/2023 BPH (benign prostatic hyperplasia) 04/06/2022 Overview (08/31/2024): Followed by [facility] Chronic urticaria 01/04/2021 COVID-19 12/19/2020 Compression fracture of thor acic vertebra ([facility] V24, [facility] V28) 02/08/2018 Overview (08/31/2024): Pathologic; ortho at [facility]; f/u prn 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, [facility]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 Overview (08/31/2024): Multiple bony lesions of pelvis and sacrum; [facility], also Dr Herbert Agustin 11/21/2016 Dysplastic nevus 04/14/2014 Overview (08/31/2024): Dysplastic nevus 04/19 back & left flank (mild atypia) Encounters Date Type Department Care Team Description 05/07/2025 10:30 AM EDT Consult Endocrinology [address] [id number] Kaleb Earl MD Hypogonadotropic hypogonadism ([facility] V24) (Primary Dx); Low testosterone in male from Last 3 Months Immunizations Immunization Administration Dates Next Due DTP 06/07/2001 Influenza [...] hyperplasia); COMMENT: Followed by [facility] Elevated liver enzymes 04/17/2023 DX:Elevat ed liver enzymes Vitamin D deficiency 04/17/2023 DX:Vitamin D deficiency Diabetes insipidus ([facility] V24) 10/18/2023 DX:Diabetes insipidus (HCC) Langerhan's cell histiocytos is ([facility] V24, [facility]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 DX:Langerhan's cell histioc ytosis (HCC); COMMENT: Multiple bony lesions of pelvis and sacrum; [facility], also Dr Godinez Hyperlipidemia Family History Medical History Relation Name Comments [...] drink = 0.6 oz pur e alcohol) occ Interpersonal Safety Answer Date Record ed Physical Abuse Unrecognized value 03/05/2025 Verbal Abuse Unrecognized value 03/05/2025 Sex and Gender Information Value Date Recorded Sex Assigned at Not on file Legal Sex Male 3:54 AM EST Gender Identity Not on file Sexual Orientation Not on file Obstetrics History Last Filed Vital Signs Vital Sign Reading Time Taken Comments Blood Pressure 102/66 05/07/2025 10:38 AM EDT Pulse 67 05/07/2025 10:38 AM EDT Temperature 35.9 C (96.7 F) 03/05/2025 10:48 AM EDT Respiratory Rate 12 05/07/2025 10:38 AM EDT Oxygen Saturation 96% 03/05/2025 11:53 AM EDT Inhaled Oxygen Concentration - - Weight 77.1 kg (170 lb) 05/07/2025 10:38 AM EDT Height 165.1 cm (5' 5 ) 05/07/2025 10:38 AM EDT Body Mass Index 28.29 05/07/2025 10:38 AM EDT Plan of Treatment Upcoming Encounters Date Type Department Care Team (Late st Contact Info) Description 10/29/2025 8:30 AM EST Office Visit Internal Medicine - [address] [place] [address] Elma Louise MD [address] [place] [phone] Health Maintenance Due Date Last Done Comments Hepatitis B Vaccines (1 of 3 - 19+ 3-dose series) 1993 Pneumococcal Vaccine: 50+ Years (1 of 2 - PCV) 1993 Zoster Vaccines (1 of 2) 1993 HIV Screening 09/09/2022 RSV Immunization Adult Patients (1 - Risk 50-74 years 1-dose series) 02/23/2024 Depression Screening 10/07/2024 08/06/2024 COVID-19 Vaccine (4 - 2024-2 6 season) 2025 09/21/2021, 01/30/2021, 01/09/2021 Influenza Vaccine (#1) 2025 1, 06/29/2009 Social Influencers of Health Screening 10/23/2025 10/23/2024 Cholesterol Screening (Lipid Panel) 10/23/2029 10/23/2024, 04/17/2024, 04/17/2024 DTaP,Tdap,and Td Vaccines (4 - Td or Tdap) 12/08/2031 12/07/2021, 07/05/2011, 06/07/2001 Colorectal Cancer Screening: Colonoscopy 03/05/2035 03/05/2025 Hepatitis C Screening Completed 10/18/2023 HIB Vaccines [...] age to complete this topic Meningococcal B Vaccine Aged Out No l onger eligible based on patient's age to complete this topic RSV Immunization Patients Under 20 months Aged Out No longer eligible b ased on patient's age to complete this topic Varicella Vaccines Aged Out No longer eligible based on patient's age to complete this topic Procedures Procedure Name Priority Date/Time Associated Diagnosis Comments COLONOSCOPY Routine 03/05/2025 11:42 AM EDT Colon cancer screening LIPID PANEL WITH REFLEX TO DIRECT LDL Routine 10/23/2024 9:28 AM EST Mixed hyperlipidemia HM DEPRESSION SCREENING Routine 08/06/2024 HEPATITIS C SCREENING Routine 10/18/2023 from Last 3 Months or Most Recently Relevant to Health Maintenance Results * COLONOSCOPY Anesthesia - MAC; [facility] ENDOSCOPY (03/05/2025 11:42 AM EDT) Anatomical Region Laterality Modality Endoscopy 03/05/2025 11:2 4 AM EDT Impressions 03/05/2025 11:44 AM EDT - Diverticulosis in the sigmoid colon. - The examination was otherwise normal on direct and retroflexion views. - No specimens collected. Recommendation: - Discharge patient to home. - Repeat colonoscopy in 10 years for screening purposes. Narrative 03/05/2025 11:44 AM EDT [facility] GI Patient Name: Elza Segovia Procedure Date: 03/05/2025 11:24 AM Date of : 1975 Age: 50 Gender: Male Note Status: Finalized Attending MD: Janina Basurto MD, Procedure Date No Time: 03/05/2025 Procedure: Colonoscopy Indications: Screening for colorectal malignant neoplasm Providers: Janina Basurto MD Referring MD: Janina Basurto MD Medicines: Monitored Anesthesia Care Complications: No immediate complications. Estimated Blood Loss: Estimated blood loss: none. Procedure: Pre-Anesthesia Assessment: - Prior to the procedure, a History and Physical was performed, and patient medications and allergies were reviewed. The patient is competent. The risks and benefits of the procedure and the sedation options and risks were discussed with the patient. All questions were answered and informed consent was obtained. Patient identification and proposed procedure were verified by the physician, the nurse, the audio visual arts director and the tire technician in the pre-procedure area in the endoscopy suite. Mental Status Examination: alert and oriented. Airway Examination: normal oropharyngeal airway and neck mobility. Respiratory Examination: clear to auscultation. CV Examination: normal. Prophylactic Antibiotics: The patient does not require prophylactic antibiotics. Prior Anticoagulants: The patient has taken no anticoagulant or antiplatelet agents. ASA Grade Assessment: II - A patient with mild systemic disease. After reviewing the risks and benefits, the patient was deemed in satisfactory condition to undergo the procedure. The anesthesia plan was to use monitored anesthesia care (MAC). Immediately prior to administration of medications, the patient was re-assessed for adequacy to receive sedatives. The heart rate, respiratory rate, oxygen saturations, blood pressure, adequacy of pulmonary ventilation, and response to care were monitored throughout the procedure. The physical status of the patient was re-assessed after the procedure. After I obtained informed consent, the scope was passed under direct vision. Throughout the procedure, the patient's blood pressure, pulse, and oxygen saturations were monitored continuously. The Colonoscope was introduced through the anus and advanced to the cecum, identified by appendiceal orifice and ileocecal valve. The colonoscopy was performed without difficulty. The patient tolerated the procedure well. The quality of the bowel preparation was good. Findings: The perianal and digital rectal examinations were normal. Scattered small-mouthed diverticula were found in the sigmoid colon. The exam was otherwise without abnormality on direct and retroflexion views. Procedure Code(s): --- Professional --- G0121, Colorectal cancer screening; colonoscopy on individual not meeting criteria for high risk Diagnosis Code(s): --- Professional --- Z12.11, Encounter for screening for malignant neoplasm of colon CPT copyright 2020 [employer]. All rights reserved. The codes documented in this report are preliminary and upon billposter review may be revised to meet current compliance requirements. Janina Basurto MD 03/05/2025 11:44:19 AM This report has been signed electronically.Janina Basurto MD Number of Addenda: 0 Note Initiated On: 03/05/2025 11:24 AM Scope Withdrawal Time: 0 hours 9 minutes 1 second Scope In: 11:29:19 AM Scope Out: 11:41:08 AM Endoscopy Department at [facility] - [address] [place] [id number] Procedure Note Janina Basurto MD - 03/05/2025 [facility] GI Patient Name: Elza Segovia Procedure Date: 03/05/2025 11:24 AM Date of : 1975 Age: 50 Gender: Male Note Status: Finalized Attending MD: Janina Basurto MD, Procedure Date No Time: 03/05/2025 Procedure: Colonoscopy Indications: Screening for colorectal malignant neoplasm Providers: Janina Basurto MD Referring MD: Janina Basurto MD Medicines: Monitored Anesthesia Care Complications: No immediate complications. Estimated Blood Loss: Estimated blood loss: none. Procedure: Pre-Anesthesia Assessment: - Prior to the procedure, a History and Physicalwas performed, and patient medications and allergieswere reviewed. The patient is competent. The risks and benefits of the procedure and the sedation optionsand risks were discussed with the patient. Allquestions were answered and informed consent was obtained. Patient identification and proposed procedure were verified by the physician, the nurse, theanesthetist and the tire technician in the pre-procedure area in the endoscopy suite. Mental Status Examination: alertand oriented. Airway Examination: normal oropharyngeal airway and neck mobility. Respiratory Examination: clear to auscultation. CV Examination: normal. Prophylactic Antibiotics: The patient does notrequire prophylactic antibiotics. Prior Anticoagulants: The patient has taken no anticoagulant or antiplatelet agents. ASA Grade Assessment: II - A patient withmild systemic disease. After reviewing the risks and benefits, the patient was deemed in satisfactory condition to undergo the procedure. The anesthesia plan was to use monitored anesthesia care (MAC). Immediately prior to administration of medications, the patient was re-assessed for adequacy to receive sedatives. The heart rate, respiratory rate, oxygen saturations, blood pressure, adequacy of pulmonary ventilation, and response to care were monitored throughout the procedure. The physical status ofthe patient was re-assessed after the procedure. After I obtained informed consent, the scope was passed under direct vision. Throughout theprocedure, the patient's blood pressure, pulse, and oxygen saturations were monitored continuously. The Colonoscope was introduced through the anus and advanced to the cecum, identified by appendiceal orifice and ileocecal valve. The colonoscopy was performed without difficulty. The patient tolerated the procedure well. The quality of the bowel preparation was good. Findings: The perianal and digital rectal examinations were normal. Scattered small-mouthed diverticula were found inthe sigmoid colon. The exam was otherwise without abnormality ondirect and retroflexion views. Procedure Code(s): --- Professional --- G0121, Colorectal cancer screening; colonoscopy on individual not meeting criteria for high risk Diagnosis Code(s): --- Professional --- Z12.11, Encounter for screening for malignantneoplasm of colon CPT copyright 2020 [employer]. All rights reserved. The codes documented in this report are preliminary and upon billposter reviewmay be revised to meet current compliance requirements. Janina Basurto MD 03/05/2025 11:44:19 AM This report has been signed electronically.Janina Basurto MD Number of Addenda: 0 Note Initiated On: 03/05/2025 11:24 AM Scope Withdrawal Time: 0 hours 9 minutes 1 second Scope In: 11:29:19 AM Scope Out: 11:41:08 AM Endoscopy Department at [facility] - [address] [place] [id number] IMPRESSION: - Diverticulosis in the sigmoid colon. - The examination was otherwise normal on directand retroflexion views. - No specimens collected. Recommendation: - Discharge patient to home. - Repeat colonoscopy in 10 years for screening purposes. Janina Basurto MD GI~PROCEDURE ORDERABLES Fin al Result * Lipid panel with reflex to direct LDL (10/23/2024 9:28 AM EST) Cholesterol 144 0 - 200 mg/dL LAB CHEMISTRY METHOD 10/23/2024 6:12 PM EST [facility] Triglycerides 139 0 - 150 mg/dL LAB CHEMISTRY METHOD 10/23/2024 6:12 PM EST [facility] HDL 40 >=40 mg/dL LAB CHEMISTRY METHOD 10/23/2024 6:12 PM EST [facility] LDL Calculated 76 0 - 100 mg/dL LAB CHEMISTRY METHOD 10/23/2024 6:12 PM EST [facility] VLDL Cholesterol Nakul 27.8 mg/dL LAB CHEMISTRY METHOD 10/23/2024 6:12 PM EST [facility] Non HDL Chol. (LDL+VLDL) 104 <145 mg/dL LAB CHEMISTRY METHOD 10/23/2024 6:12 PM EST [facility] Chol/HDL Ratio 3.6 0.0 - 4.4 LAB CHEMISTRY METHOD 10/23/2024 6:12 PM EST [facility] Blood Venous blood specimen / Unknown Venipuncture / Unknown 10/23/2024 9:28 AM EST 10/23/2024 9:28 AM EST Elma Louise MD LAB BLOOD ORDERABLES Final Resul t [facility] [address] [place] [address], [place] [phone] * Depression Screening (08/06/2024) Depression Screening abstracted us Historical Provider HEALTH MAINTENANCE Final Result * Hepatitis C Screening (10/18/2023) Hepatitis C Screening abstracted us Historical Provider HEALTH MAINTENANCE Final Result from Last 3 Months or Most Recently Relevant to Health Maintenance Insurance [facility] Care Teams 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
== END 2025-08-04 10:48 | disposition home or self-care (01) ==
LOC: HO.HKAS 10:18
PROVIDERS: PCP Student in an Organized Health Care Education/Training Program; Visit Provider Internal Medicine Hypertension Specialist
DX: E23.2 Diabetes insipidus (principal)
CPT/HCPCS: 99214

== ENCOUNTER → 2025-08-04 10:17 | Outpatient (BNVA) | payer OTHER, SELFPAY | PROVIDERS: PCP Student in an Organized Health Care Education/Training Program; Visit Provider Internal Medicine Hypertension Specialist | DX: E23.2 Diabetes insipidus (principal) | CPT/HCPCS: 99212 ==